=== PATIENT | female | born 1990 | race Two or more races ===

== ENCOUNTER 2018-04-17 08:07 | Emergency (ER) | payer OTHER ==
[2018-04-17 08:12] VITALS: BP 112/64; PULSE 78; BMI 22.4
--- NOTE | 2018-04-17 08:29 | PDOC ---
History of Present Illness - General Chief Complaint: Injury Stated Complaint: FALL Time Seen by Provider: 04/17/18 08:17 History Source: Patient Exam Limitations: No Limitations - History of Present Illness Initial Comments: 04/17/18 08:49 slipped and fell this morning on ice falling onto her left buttock and low back. Denies head injury, no extremity injury although states with swelling and tenderness to her left gluteus has some distal sensory changes in tingling to her thigh. Occurred: reports: yesterday Pain Location: reports: back Method of Injury: Yes: fall Modifying Factors: improves with: None Loss of Consciousness: no loss of consciousness Associated Symptoms (Fall): trouble walking (painful) Past History - Travel Traveled outside of the country in the last 30 days: No Close contact w/someone who was outside of country & ill: No - Past Medical History Allergies/Adverse Reactions: Allergies Allergy/AdvReac Type Severity Reaction Status Date / Time No Known Allergies Allergy Verified 04/17/18 08:11 Home Medications: Ambulatory Orders Cyclobenzaprine HCl 10 mg PO Q8H PRN #14 tablet 04/17/18 Naproxen [Naprosyn -] 500 mg PO BID #30 tablet 04/17/18 - Suicide/Smoking/Psychosocial Hx Smoking History: Never smoked Review of Systems - Review of Systems Able to Perform ROS?: Yes Is the patient limited Estonian proficient: Yes Constitutional: Yes: Symptoms Reported, See HPI, Malaise HEENTM: Yes: See HPI. No: Symptoms Reported Respiratory: Yes: See HPI. No: Symptoms reported, Cough Musculoskeletal: Yes: Symptoms Reported, See HPI, Back Pain, Muscle Pain Neurological: Yes: Symptoms reported, See HPI, Numbness All Other Systems: Reviewed and Negative *Physical Exam - Vital Signs Last Vital Signs Temp Pulse Resp BP Pulse Ox 78 16 112/64 100 04/17/18 08:11 04/17/18 08:11 04/17/18 08:11 04/17/18 08:11 - Physical Exam General Appearance: Yes: Appropriately Dressed, Apparent Distress, Mild Distress HEENT: positive: PAVEL, Normal ENT Inspection, TMs Normal, Pharynx Normal Neck: positive: Supple. negative: Tender Respiratory/Chest: positive: Lungs Clear, Normal Breath Sounds. negative: Chest Tender Gastrointestinal/Abdominal: positive: Soft. negative: Tender Musculoskeletal: positive: Normal Inspection, Decreased Range of Motion, Muscle Spasm (mild to low back ). negative: CVA Tenderness (L) Extremity: positive: Normal Capillary Refill, Normal Inspection, Normal Range of Motion Integumentary: positive: Normal Color, Pale Neurologic: positive: separator inserter II-XII NML intact, Fully Oriented, Alert, Normal Mood/ Affect, Normal Response, Motor Strength 5/5 Moderate Sedation - Procedure Monitoring Vital Signs: Procedure Monitoring Vital Signs Temperature Pulse Rate 78 04/17/18 08:11 Respiratory Rate 16 04/17/18 08:11 Blood Pressure 112/64 04/17/18 08:11 O2 Sat by Pulse Oximetry (%) 100 04/17/18 08:11 Progress Note - Progress Note Progress Note: Status post fall with contusion to left hip/buttock. Mild spasm. We'll treat with NSAIDs and cyclobenzaprine *DC/Admit/Observation/Transfer Diagnosis at time of Disposition: Contusion of back Qualifiers: Encounter type: initial encounter Laterality: left Qualified Code(s): S20.222A - Contusion of left back wall of thorax, initial encounter - Discharge Dispostion Disposition: HOME Condition at time of disposition: Stable Decision to Admit order: No - Prescriptions Prescriptions: Cyclobenzaprine HCl 10 mg PO Q8H PRN #14 tablet PRN Reason: spasm Naproxen [Naprosyn -] 500 mg PO BID #30 tablet - Referrals - Patient Instructions Printed Discharge Instructions: DI for Back Strain or Sprain Additional Instructions: Rest, no heavy lifting or exercise until pain is resolved Hot soaks to neck and low back as often as possible/hot showers or Jacuzzis No massage or therapy until spasm is gone Continue Naprosyn 500 mg tablet, 1 tablet every 8 hours for the next 3 days then as needed for pain and swelling Cyclobenzaprine 1-10mg every 8 hours as needed for spasm If not significant improvement within 24 hours with medication and rest regime, followup with private physician for change in medications and /or therapy. - Post Discharge Activity Forms/Work/School Notes: Back to Work
== END 2018-04-17 09:06 | disposition home or self-care (01) ==
LOC: JERFT 08:07
DX: S20.222A Contusion of left back wall of thorax, initial encounter (principal); W00.2XXA Other fall from one level to another due to ice and snow, initial encounter; Y93.01 Activity, walking, marching and hiking; Y92.89 Other specified places as the place of occurrence of the external cause; Y99.8 Other external cause status
CPT/HCPCS: 84703; 99281-25

== ENCOUNTER 2019-01-28 18:11 | Emergency (ER) | payer OTHER ==
[2019-01-28 18:17] VITALS: TEMP 98.8; BMI 21.9
--- NOTE | 2019-01-28 18:19 | PDOC ---
Rapid Medical Evaluation Time Seen by Provider: 01/28/19 18:14 Medical Evaluation: Allergies Allergy/AdvReac Type Severity Reaction Status Date / Time No Known Allergies Allergy Verified 04/17/18 08:11 01/28/19 18:16 This patient received a in-person evaluation in triage cc/HPI: abdominal pain since ( 5 days ago) with no nausea, vomiting, diarrhea or constipation PE: NAD unlabored breathing non tender abdomen, +bowel sounds orders: urine This patient will proceed to ED for further evaluation Discharge Disposition - Diagnosis Abdominal pain Qualifiers: Abdominal location: unspecified location Qualified Code(s): R10.9 - Unspecified abdominal pain - Referrals Referrals: ON STAFF,NOT [Primary Care Provider] - - Patient Instructions - Post Discharge Activity
[2019-01-28 18:45] LABS: PH,URINE 7.5 (5.0-8.0); URINE APPEARANCE TURBID; URINE BILIRUBIN NEGATIVE (NEGATIVE); URINE COLOR YELLOW; URINE GLUCOSE (UA) NEGATIVE (NEGATIVE); URINE KETONE NEGATIVE (NEGATIVE); URINE LEUK ESTERASE NEGATIVE (NEGATIVE); URINE NITRITE NEGATIVE (NEGATIVE); URINE PROTEIN NEGATIVE (NEGATIVE); URINE UROBILINOGEN 0.2 mg/dL (0.2-1.0)
--- NOTE | 2019-01-28 19:21 | PDOC ---
History of Present Illness - General Chief Complaint: Pain Stated Complaint: ABDOMINAL PAIN Time Seen by Provider: 01/28/19 18:14 History Source: Patient - History of Present Illness Initial Comments: 01/28/19 19:46 28 year old female c/o generalized abdominal pain x 4 days. denies nausea, vomiting diarrhea. denies fever/ chills, urinary symptoms, chest pain, headache. patient reports pain is worse after eating. no pmhx last BM yesterday 01/28/19 19:48 01/28/19 19:52 Past History - Past Medical History Allergies/Adverse Reactions: Allergies Allergy/AdvReac Type Severity Reaction Status Date / Time No Known Allergies Allergy Verified 01/28/19 19:18 Home Medications: Ambulatory Orders Famotidine [Pepcid -] 40 mg PO DAILY #20 tablet 01/28/19 COPD: No - Immunization History Immunization Up to Date: Yes - Psycho Social/Smoking Cessation Hx Smoking History: Never smoked Information on smoking cessation initiated: No Hx Alcohol Use: No Drug/Substance Use Hx: No Review of Systems - Review of Systems Able to Perform ROS?: Yes Is the patient limited Gibraltarian proficient: No Constitutional: No: Symptoms Reported, See HPI, Chills, Diaphoresis, Fever, Loss of Appetite, Malaise, Night Sweats, Weakness, Weight Stable, Unintentional Wgt. Loss, Unexplained wgt Loss, Other ABD/GI: Yes: Abdominal cramping. No: Symptoms Reported, See HPI, Abdominal Distended, Abd. Pain w/ defecation, Blood Streaked Bowels, Constipated, Diarrhea , Difficulty Swallowing, Nausea, Poor Appetite, Poor Fluid Intake, Rectal Bleeding, Vomiting, Indigestion, Tarry Stools, Other *Physical Exam - Vital Signs Last Vital Signs Temp Pulse Resp BP Pulse Ox 98.8 F 66 17 97/51 L 99 01/28/19 18:14 01/28/19 18:14 01/28/19 18:14 01/28/19 18:14 01/28/19 18:14 - Physical Exam General Appearance: Yes: Appropriately Dressed Respiratory/Chest: positive: Lungs Clear, Normal Breath Sounds Cardiovascular: positive: Regular Rhythm, Regular Rate Gastrointestinal/Abdominal: positive: Normal Bowel Sounds, Tender (RUQ and epigastric area) Integumentary: positive: Dry, Warm Neurologic: positive: Fully Oriented, Alert ED Treatment Course - LABORATORY CBC & Chemistry Diagram: 01/28/19 20:03 01/28/19 20:03 - ADDITIONAL ORDERS Additional order review: Laboratory Results 01/28/19 01/28/19 18:32 18:32 Urine Color Yellow Urine Appearance Turbid Urine pH 7.5 Ur Specific [place] 1.019 Urine Protein Negative Urine Glucose (UA) Negative Urine Ketones Negative Urine Blood Negative Urine Nitrite Negative Urine Bilirubin Negative Urine Urobilinogen 0.2 Ur Leukocyte Esterase Negative Urine HCG, Qual Negative ED Progress Note - Progress Note Progress Note: 01/28/19 19:48 Abdominal pain P: CBC CMP lipase Abdominal US Medical Decision Making - Medical Decision Making 01/28/19 21:40 patient is now feeling better. no abdominal pain.will d/c home with PPI. US normal 01/28/19 21:42 Discharge - Discharge Information Problems reviewed: Yes Clinical Impression/Diagnosis: Abdominal pain Qualifiers: Abdominal location: unspecified location Qualified Code(s): R10.9 - Unspecified abdominal pain Gastritis Qualifiers: Gastritis type: unspecified gastritis Chronicity: acute Gastritis bleeding: without bleeding Qualified Code(s): K29.00 - Acute gastritis without bleeding Disposition: HOME - Additional Discharge Information Prescriptions: Famotidine [Pepcid -] 40 mg PO DAILY #20 tablet - Follow up/Referral Referrals: ON STAFF,NOT [Primary Care Provider] - Marta Maciel MD [Staff Physician] - Call tomorrow - Patient Discharge Instructions Patient Printed Discharge Instructions: Acute Abdominal Pain Additional Instructions: drinl plenty of fluids start a bland diet follow up with a production supervisor off shift as soon as possible return to the ER for any worsening symptoms - Post Discharge Activity Work/Back to School Note: Back to Work
[2019-01-28] MEDS ORDERED: ONDANSETRON 4 MG/2 ML VIAL IVPB ONE (19:51)
[2019-01-28] MEDS ORDERED: FAMOTIDINE 20 MG/50 ML IVPB 20 MG/50 ML MG IVPB ONE ×2 (19:51→20:07)
[2019-01-28] MEDS ORDERED: SODIUM CHLORIDE 0.9% 500 ML INFUS.BAG IV ONE (19:58)
--- NOTE | 2019-01-28 20:03 | PDOC ---
*Physical Exam - Vital Signs Last Vital Signs Temp Pulse Resp BP Pulse Ox 98.8 F 66 17 97/51 L 99 01/28/19 18:14 01/28/19 18:14 01/28/19 18:14 01/28/19 18:14 01/28/19 18:14 ED Treatment Course - LABORATORY CBC & Chemistry Diagram: 01/28/19 20:03 01/28/19 20:03 - ADDITIONAL ORDERS Additional order review: Laboratory Results 01/28/19 01/28/19 18:32 18:32 Urine Color Yellow Urine Appearance Turbid Urine pH 7.5 Ur Specific [place] 1.019 Urine Protein Negative Urine Glucose (UA) Negative Urine Ketones Negative Urine Blood Negative Urine Nitrite Negative Urine Bilirubin Negative Urine Urobilinogen 0.2 Ur Leukocyte Esterase Negative Urine HCG, Qual Negative Medical Decision Making - Medical Decision Making 01/28/19 20:04 Patient seen by the advanced practice provider under my direct supervision. Ancillary testing reviewed as necessary. I agree with plan as outlined by the advanced practice provider. Discharge - Discharge Information Problems reviewed: Yes Clinical Impression/Diagnosis: Abdominal pain Qualifiers: Abdominal location: unspecified location Qualified Code(s): R10.9 - Unspecified abdominal pain Gastritis Qualifiers: Gastritis type: unspecified gastritis Chronicity: acute Gastritis bleeding: without bleeding Qualified Code(s): K29.00 - Acute gastritis without bleeding Disposition: HOME - Additional Discharge Information Prescriptions: Famotidine [Pepcid -] 40 mg PO DAILY #20 tablet - Follow up/Referral Referrals: Marta Maciel MD [Staff Physician] - Call tomorrow ON STAFF,NOT [Primary Care Provider] - - Patient Discharge Instructions Patient Printed Discharge Instructions: Acute Abdominal Pain Additional Instructions: drinl plenty of fluids start a bland diet follow up with a transition mgr rn as soon as possible return to the ER for any worsening symptoms - Post Discharge Activity Work/Back to School Note: Back to Work
[2019-01-28] MEDS ORDERED: ONDANSETRON 4 MG/2 ML VIAL ONE (20:07)
[2019-01-28 20:29] LABS: BASO % 1.2 % (0-2.0); EOS % 1.4 % (0-4.5); HEMATOCRIT 31.3 % (32.4-45.2); HEMOGLOBIN 10.2 GM/dL (10.7-15.3); LYMPH % 54.5 % (8-40); MCH 27.6 pg (25.7-33.7); MCHC 32.5 g/dl (32.0-36.0); MEAN CELL VOLUME 84.7 fl (80-96); MEAN PLT VOLUME 8.9 fl (7.5-11.1); MONO % 9.1 % (3.8-10.2); NEUT % 33.8 % (42.8-82.8); PLATELET COUNT 233 K/MM3 (134-434); RBC 3.69 M/mm3 (3.60-5.2); RDW 12.7 % (11.6-15.6); WHITE BLOOD COUNT 4.5 K/mm3 (4.0-10.0)
[2019-01-28 20:59] LABS: ALBUMIN 3.9 g/dl (3.4-5.0); BILIRUBIN,TOTAL 0.1 mg/dL (0.2-1); BLOOD UREA NITROGEN 13.8 mg/dL (7-18); CREATININE 0.8 mg/dL (0.55-1.3); POTASSIUM 4.2 mmol/L (3.5-5.1)
[2019-01-28 21:49] VITALS: BP 102/74; PULSE 84
== END 2019-01-28 21:49 | disposition home or self-care (01) ==
LOC: JER 18:11
PROC: 3E033GC Introduction of Other Therapeutic Substance into Peripheral Vein, Percutaneous Approach (ICD-10-PCS; principal; 2019-01-28)
DX: R10.9 Unspecified abdominal pain (principal); K29.00 Acute gastritis without bleeding
CPT/HCPCS: 36415; 76705-TC; 80053; 81003; 83690; 84703; 85025; 87077; 87086; 99282-25